=== PATIENT | female | born 1975 | race African-American/Black ===

== ENCOUNTER → 2017-07-17 | Day surgery (SDC) | payer BC ==
--- NOTE | 2017-07-18 18:51 | PATH ---
Surgical Pathology Report Patient Name: DEAN MCKAY [facility]. Rec. #: [id number] /Age/Gender: 1975 (Age: 41) / F Account: [id number] Location: RADIOLOGY [facility] Taken: 07/17/2017 Received: 07/17/2017 Reported: 07/18/2017 Physicians: Alyson Valdez M.D. Specimen(s) Received LEFT BREAST 10:00 1.7 CM Clinical History Palpable mass Ultrasound findings: Probably benign Final Diagnosis BREAST, LEFT, 10:00, ULTRASOUND GUIDED CORE BIOPSY: FIBROADENOMA. Electronically Signed Judy Galindo M.D. Gross Description Received in formalin labeled "left 10:00," are 6 hameed-yellow, cylindrical portions of fibroadipose tissue ranging from 0.3-1.0 cm in length and averaging 0.1 cm in diameter. The specimens are submitted in toto in one cassette. Time to formalin fixation: Less than one minute Total formalin fixation time: Approximately 6 hours. 07/17/2017 [facility]07/17/2017
== END | disposition home or self-care (01) ==
LOC: JRADUS-SUR 11:28
PROVIDERS: ATTEND Obstetrics & Gynecology
PROC: 0HBU3ZX Excision of Left Breast, Percutaneous Approach, Diagnostic (ICD-10-PCS; principal; 2017-07-17)
DX: D24.2 Benign neoplasm of left breast (principal)
CPT/HCPCS: 19083; 87899; 88305-TC; A4648